=== PATIENT | male | born 1975 | race Caucasian/White ===

== ENCOUNTER 2017-05-03 10:04 | Emergency (ER) | payer SELFPAY ==
[~2017-05-03] VITALS: Ht 170.2 cm; Wt 70.0 kg
[2017-05-03] MEDS ORDERED: IBUPROFEN 600MG TABLET PO ONE (10:45)
[2017-05-03] MEDS ORDERED: BACITRACIN ZINC OINT UDPKT TOP ONE (10:45)
[2017-05-03 10:51] VITALS: BP 128/75
== END 2017-05-03 11:05 | disposition home or self-care (01) ==
LOC: ER 10:51
DX: L25.3 Unspecified contact dermatitis due to other chemical products (principal); T55.0X1A Toxic effect of soaps, accidental (unintentional), initial encounter; L03.113 Cellulitis of right upper limb; L03.114 Cellulitis of left upper limb; Y92.090 Kitchen in other non-institutional residence as the place of occurrence of the external cause
CPT/HCPCS: 99283; X7700; Z7610

== ENCOUNTER 2017-05-09 10:46 | Emergency (ER) | payer SELFPAY ==
[~2017-05-09] VITALS: Ht 151.1 cm; Wt 71.0 kg
[2017-05-09 10:47] VITALS: BP 110/78
[2017-05-09] MEDS ORDERED: CEPH500C2 (10:50)
[2017-05-09] MEDS ORDERED: PREDNISONE 20MG TABLET PO ONE (12:15)
[2017-05-09] MEDS ORDERED: DIPHENHYDRAMINE 50MG CAPSULE PO ONE (12:15)
== END 2017-05-09 12:25 | disposition home or self-care (01) ==
LOC: ER 11:42
DX: L25.9 Unspecified contact dermatitis, unspecified cause (principal)
CPT/HCPCS: 99283; J7512; Q0163